=== PATIENT | female | born 1990 | race Caucasian/White ===

== ENCOUNTER → 2018-03-04 14:56 | Outpatient (CLI) | payer MEDICAID, SELFPAY ==
[2018-03-04 15:19] LABS: Basophils # 0.1 K/mm3 (0-0.2); Basophils % 0.6 % (0.1-2.0); Eosinophils # 0.1 K/mm3 (0.0-0.4); Eosinophils % 1.2 % (0.1-12.0); Hematocrit 40.2 % (37.0-47.0); Lymphocytes # 2.4 K/mm3 (0.7-4.5); Lymphocytes % 27.8 K/mm3 (10-50); Mean Corpuscular HGB Conc 32.2 g/dL (31.8-35.4); Mean Corpuscular Hemoglobin 29.9 pg (27.0-31.2); Mean Corpuscular Volume 92.7 fl (81-99); Mean Platelet Volume 8.8 fl (7.4-10.4); Monocytes # 0.4 K/mm3 (0.1-1.0); Monocytes % 4.2 % (1.7-9.3); Neutrophils # 5.6 K/mm3 (1.8-7.8); Neutrophils % 66.2 % (37.0-80.0); Platelet Count 213 K/mm3 (142-424); Red Blood Count 4.34 M/mm3 (4.20-5.40); Red Cell Distribution Width 12.9 % (11.5-17.5); White Blood Count 8.4 K/mm3 (4.8-10.8)
[2018-03-04 16:36] LABS: Thyroid Stimulating Hormone 1.93 uIU/ml (0.358-3.740)
== END ==
PROVIDERS: Family Provider Physician Assistant; PCP Family Medicine; Visit Provider Obstetrics & Gynecology
DX: N93.8 Other specified abnormal uterine and vaginal bleeding (principal)
CPT/HCPCS: 36415; 84443; 85025

== ENCOUNTER → 2018-05-28 10:10 | Outpatient (CLI) | payer MEDICAID, SELFPAY ==
[2018-05-28 10:16] LABS: Microscopic, Urine URINE MICROSCOPIC (MICROSCOPIC)
[2018-05-28 10:41] LABS: Appearance,Urine CLEAR (Clear); Bilirubin,Urine Negative (Negative); Blood, Urine Negative (Negative); Color,Urine YELLOW (Yellow); Glucose,Urine (UA) Negative (Negative); Ketones,Urine TRACE (Negative); Leukocyte Esterase,Urine Negative (Negative); Nitrate,Urine Negative (Negative); PH,Urine 6.5 (5.0-8.5); Protein,Urine Negative (Negative); Urobilinogen,Urine 0.2 EU/dl (0.2)
[2018-05-28 10:51] LABS: Bacteria,Urine Trace /lpf; Mucus,Urine 1+ /lpf; RBC,Urine Occasional #/hpf (0-3)
[2018-05-28 11:10] LABS: Basophils # 0.1 K/mm3 (0-0.2); Basophils % 1.2 % (0.1-2.0); Eosinophils # 0.2 K/mm3 (0.0-0.4); Eosinophils % 3.2 % (0.1-12.0); Hematocrit 41.9 % (37.0-47.0); Hemoglobin 12.9 g/dL (12.2-16.2); Lymphocytes # 2.2 K/mm3 (0.7-4.5); Lymphocytes % 35.7 K/mm3 (10-50); Mean Corpuscular HGB Conc 30.7 g/dL (31.8-35.4); Mean Corpuscular Hemoglobin 28.7 pg (27.0-31.2); Mean Corpuscular Volume 93.4 fl (81-99); Mean Platelet Volume 8.1 fl (7.4-10.4); Monocytes # 0.3 K/mm3 (0.1-1.0); Monocytes % 5.1 % (1.7-9.3); Neutrophils # 3.4 K/mm3 (1.8-7.8); Neutrophils % 54.7 % (37.0-80.0); Platelet Count 235 K/mm3 (142-424); Red Blood Count 4.49 M/mm3 (4.20-5.40); Red Cell Distribution Width 13.7 % (11.5-17.5); White Blood Count 6.1 K/mm3 (4.8-10.8)
[2018-05-28 11:19] LABS: Alanine Aminotransferase 16 U/L (12-78); Albumin Level 3.6 gm/dL (3.4-5.0); Albumin/Globulin Ratio 1.1 (1.1-1.8); Alkaline Phosphatase 61 U/L (46-116); Anion Gap 9.1 mEq/L (5-15); Aspartate Amino Transferase 11 U/L (15-37); Bilirubin,Total 0.2 mg/dL (0.2-1.0); Blood Urea Nitrogen 10 mg/dL (7-18); Calcium 9.1 mg/dL (8.5-10.1); Carbon Dioxide 30 mmol/L (21.0-32.0); Chloride 107 mmol/L (98-107); Creatinine,Serum 0.59 mg/dL (0.55-1.02); Estimated Glomerular Filt Rate 122 ml/min (>60); GFR (African American) 148 ML/MIN (>60); Globulin 3.3 gm/dl (1.3-3.2); Glucose 108 mg/dL (74-106); HCG,Quantitative 0 mIU/mL; Potassium 4.1 mmoL/L (3.5-5.1); Sodium 142 mmol/L (136-145); Total Protein,Serum 6.9 gm/dL (6.4-8.2)
== END ==
PROVIDERS: Visit Provider Obstetrics & Gynecology
DX: R10.2 Pelvic and perineal pain (principal); N93.8 Other specified abnormal uterine and vaginal bleeding; Z01.818 Encounter for other preprocedural examination
CPT/HCPCS: 36415; 80053; 81001; 84702; 85025

== ENCOUNTER 2018-05-31 06:05 | Observation (INO) ==
--- NOTE | 2018-05-31 07:12 | Progress Note ---
[facility] Anesthesia Checklist - Patient Identification Patient Identification: Arm Band, Verbal (Name & ) - Structural Data Admitted From: Home Planned Operative Procedure/s: TVH, BSO, possible open Consent for Planned Operative Procedure(s) Verified: Yes Verified Documents: Surgical Consent, History and Physical - NPO Status Verified Time NPO: 23:00 - Additional verifications Patient : No Anesthesia Reactions: No - Airway Assessment C-Spine Mobility Assessed: Yes TMJ Mobility Assessed: Yes Dentition: Poor Dentition (Missing teeth) - Neurological Assessment Level of Consciousness: Awake Hx Seizures: No Numbness or tingling in extremities: No - Anesthesia Plan Anesthesia Risk discussed: Yes Anesthesia Plan: Verified ASA Class: II Anesthesia Type: General (Intrathecal narcotic) [facility] Anesthesia HX I have reviewed the patient's past medical history: Yes Medical History: Denies:: Cancer, Diabetes Mellitus Type 1, Diabetes Mellitus Type 2, MRSA, Seizures Other Medical History: Reports: Other (Smokes tobacco). Denies: Blood Transfusion Reaction Laterality Cases: Bilateral: Tonsillectomy Other Surgeries: Yes: Other Amputation: No Fractures: No *Family Hx:: Hypertension, Cancer
--- NOTE | 2018-05-31 08:22 | Operative Note ---
Date of procedure: 05/31/18 Pre-op Diagnosis:: 1. Dysfunctional uterine bleeding. 2. Pelvic pain. 3. Endometriosis. Post-op Diagnosis:: 1. Dysfunctional uterine bleeding. 2. Pelvic pain. 3. Juan Carlos is. 4. Right ovarian cyst. Procedure performed:: 1. Total vaginal hysterectomy. 2. Aspiration of right ovarian cyst. Surgeon:: Russ Escobedo MD Director Call(s):: Dr. Abad ALUMINUM SIDING APPLICATOR:: Other (BEATRIZ Armendariz) Anesthesia: GETA Estimated blood loss (mL): 100 Operative findings:: 1. Dysfunctional uterine bleeding. 2. Pelvic pain. 3. Endometriosis. 4. Right ovarian cyst. Operative note:: After the patient was prepped and draped in usual fashion and general anesthesia was examination under anesthesia revealed a normal-sized anteverted uterus, with no palpable adnexal masses. A weighted speculum was placed within the posterior fourchette of the vagina, and the cervix was grasped with a double -tooth tenaculum, and retracted to the introitus. The cervix was circumcised with a knife, and the vaginal mucosa was sharply and bluntly dissected free. A posterior colpotomy incision was made with Usman scissors, and the long lip of the weighted speculum was placed within the posterior peritoneum. The uterosacral ligaments on either side were Bonita clamped, cut, and Bonita suture with #1 Vicryl, as were the cardinal ligaments and uterine vessels. The anterior peritoneum was entered with Usman scissors, and a long right angle retractor was placed within it. The uterus was flipped anteriorly, and the ovarian pedicles were crossclamped and cut, thus removing the boggy uterine specimen. These pedicles were Bonita sutured, and then free tied with #1 Vicryl. The left tube and ovary appeared normal. On the right side, the tube was normal, but there was a 3 cm clear cyst on the right ovary. The cyst was aspirated for a small amount of clear fluid, and the puncture site was cauterized. The posterior vaginal cuff was run unlocked with #1 Vicryl, to include the uterosacral ligament pedicles, and a Bear fashion, to reduce the enterocele. The anterior peritoneum was grasped with a long Allis clamp, and closed with a running suture of 0 Vicryl, and pulled tight. The vaginal cuff was closed with an anteroposterior running locked suture of #1 Vicryl. The urine was clear in Richardson catheter. The sponge and needle counts correct. The estimated blood loss was 100 cc. The patient tolerated the procedure well, and to PACU in excellent condition. She will be observed overnight. Condition: stable Disposition: PACU Specimens:: Uterus Complications:: None
--- NOTE | 2018-05-31 08:33 | Progress Note ---
[facility] [place] Anesthesia Record Part I Intake, IV Amount: 1,000 Estimated blood loss (mL): 100 Urine output (mL): 100 Blood Products used (#): none Blood Pressure: 102/62 SaO2: 97 Pulse Rate: 87 Respiratory Rate: 14 Temperature: 97.9 F Patient is:: Awake, Stable Stable to PACU at:: 08:25
--- NOTE | 2018-05-31 08:34 | Progress Note ---
[facility] Anesthesia Record Part II Discharge Time: 08:55 Destination: Medical Surgical Department PACU nurse assessment reviewed?: Yes Patient Condition:: Good Anesthesia Complications:: None
[2018-05-31 09:22] LABS: Hematocrit 35.7 % (37.0-47.0); Hemoglobin 11.1 g/dL (12.2-16.2)
--- NOTE | 2018-05-31 09:33 | Pharmacy Consult Notes ---
[facility] Pharmacy VTE Monitoring - Patient Demographics Admission date: 05/31/18 Report Date: 05/31/18 Time: 09:33 Allergies/Adverse Reactions: Patient Allergies SULFA (sulfonamide) Allergy (Intermediate, Uncoded 05/21/18 13:51) I-RASH Codeine Allergy (Mild, Uncoded 05/21/18 13:51) NA-NAUSEA Tramadol Allergy (Unknown, Uncoded 05/21/18 13:51) NA-NAUSEA/VOMITING Height: 1.5 m Weight: 42.638 kg - Prophylaxis VTE Prophylaxis Ordered?: Yes Types of VTE Prophylaxis: Pharmacological Pharmacologic Type: Enoxaparin - VTE Diagnosis Confirmed Treatment or plan recommended: Continue Current Treatment
--- NOTE | 2018-05-31 15:54 | Progress Note ---
Internal Medicine - PN: Subj *Date: 05/31/18 *Time: 15:53 Interval history: This is day of surgery. Surgery has been explained to the patient. Hemoglobin 11.1 g. She is afebrile. Vital signs stable. Urine output good. Her Richardson has been discontinued and I am starting her on a diet. Impression: Stable. Exam Vital signs and Labs for Last 24 Hours: Temp Pulse Resp BP Pulse Ox 98.3 F 52 L 16 91/54 100 05/31/18 15:30 05/31/18 15:30 05/31/18 15:30 05/31/18 15:30 05/31/18 15:30 Laboratory Results - last 24 hr 05/31/18 07:33: Urine Color Yellow, Urine Appearance Clear, Urine pH 6.5, Ur Specific [place] 1.015, Urine Protein Negative, Urine Glucose (UA) Negative, Urine Ketones Negative, Urine Blood Trace-i, Urine Nitrate Negative, Urine Bilirubin Negative, Urine Urobilinogen 0.2, Ur Leukocyte Esterase Negative, Urine RBC Occasional, Urine WBC Occasional, Ur Squamous Epith Cells 5-10, Urine Bacteria 2+ A 05/31/18 09:15: Hgb 11.1 L, Hct 35.7 L I & O for Last 24 hours: Intake & Output 05/29/18 05/30/18 05/31/18 06/01/18 11:59 11:59 11:59 11:59 Intake Total 1000 / 1000 Balance 1000 / 1000 Weight 94 lb 94 lb
[2018-06-01 06:06] LABS: Hematocrit 35.5 % (37.0-47.0); Hemoglobin 10.9 g/dL (12.2-16.2)
--- NOTE | 2018-06-01 06:38 | Progress Note ---
Internal Medicine - PN: Subj *Date: 06/01/18 *Time: 06:37 (This is postop day #1. The patient is afebrile. She has had her Richardson out and is awaiting voiding. She was found to be smoking in the bathroom and now has a nicotine patch on. She is afebrile. Vital signs stable. Abdomen soft. Hemoglobin 11.1 g. Impression: Stable.) Exam Vital signs and Labs for Last 24 Hours: Temp Pulse Resp BP Pulse Ox 97.9 F 70 18 94/58 99 06/01/18 05:15 06/01/18 05:15 06/01/18 05:15 06/01/18 05:15 05/31/18 20:30 Laboratory Results - last 24 hr 05/31/18 07:33: Urine Color Yellow, Urine Appearance Clear, Urine pH 6.5, Ur Specific [place] 1.015, Urine Protein Negative, Urine Glucose (UA) Negative, Urine Ketones Negative, Urine Blood Trace-i, Urine Nitrate Negative, Urine Bilirubin Negative, Urine Urobilinogen 0.2, Ur Leukocyte Esterase Negative, Urine RBC Occasional, Urine WBC Occasional, Ur Squamous Epith Cells 5-10, Urine Bacteria 2+ A 05/31/18 09:15: Hgb 11.1 L, Hct 35.7 L 06/01/18 05:45: Hgb 10.9 L, Hct 35.5 L I & O for Last 24 hours: Intake & Output 05/29/18 05/30/18 05/31/18 06/01/18 11:59 11:59 11:59 11:59 Intake Total 1000 / 1000 550 / 550 Output Total 675 / 675 Balance 1000 / 1000 -125 / -125 Weight 94 lb 94 lb
--- NOTE | 2018-06-01 08:54 | Discharge Summary ---
General - General Admission date:: 05/31/18 Discharge date: 06/01/18 (This 27-year-old white female was admitted for definitive treatment of pelvic pain, dysfunctional uterine bleeding, and endometriosis. On the date of admission, she was taken to the operating room, where she underwent a total vaginal hysterectomy and aspiration of her right ovarian cyst. Both adnexa remain in situ. The surgery was without complications. Postoperatively, the patient is done well. Her initial hemoglobin was 11.1 g; postoperatively it is 10.9 g, but she is clinically stable. She is eating and ambulating and passing flatus. Her abdomen is soft. She is discharged home on the first postoperative day on iron and vitamins, and on Percocet 5/325 (#20), 1 p.o. every 4-6 hours as needed pain. She is given appropriate instructions as to diet and exercise, and she is to return the office in 2 weeks for follow-up.) Objective Vital signs: Temp Pulse Resp BP Pulse Ox 97.9 F 70 18 94/58 99 06/01/18 05:15 06/01/18 05:15 06/01/18 05:15 06/01/18 05:15 05/31/18 20:30 Results Labs on day of discharge: Labs from last 24 hours 06/01/18 05/31/18 05/31/18 05:45 09:15 07:33 Hgb 10.9 L 11.1 L Hct 35.5 L 35.7 L Urine Color Yellow Urine Appearance Clear Urine pH 6.5 Ur Specific [place] 1.015 Urine Protein Negative Urine Glucose (UA) Negative Urine Ketones Negative Urine Blood Trace-i Urine Nitrate Negative Urine Bilirubin Negative Urine Urobilinogen 0.2 Ur Leukocyte Esterase Negative Urine RBC Occasional Urine WBC Occasional Ur Squamous Epith Cells 5-10 Urine Bacteria 2+ A Discharge Plan - Patient Discharge Instructions - Follow up Plan Home Medications: Home Medications Medication Instructions Recorded Confirmed Type Norethindrone 0.35 mg PO DAILY 05/31/18 05/31/18 History Prescriptions/Medication Reconciliation: No Action Norethindrone 0.35 mg PO DAILY
== END 2018-06-01 09:45 | disposition home or self-care (01) ==
LOC: OR 06:05 → OB 07:06 → INTOOBSV 07:06 → OB 09:26
PROVIDERS: ADMIT Obstetrics & Gynecology; ATTEND Obstetrics & Gynecology

== ENCOUNTER → 2018-09-21 13:50 | Outpatient (CLI) | payer MEDICAID, SELFPAY ==
--- NOTE | 2018-09-21 13:54 | US_ITS ---
US transvaginal HISTORY: ITS.REASON: Pelvic Pain ORDERING PHYSICIAN: Russ Escobedo MD PATIENT AGE: 28 years Comparison: 08/16/2015 FINDINGS: There has been a prior hysterectomy. The vaginal cuff has an unremarkable appearance. The right ovary is 3.6 x 2.6 cm and contains multiple follicles. The left ovary is 4 x 2 cm also containing multiple small follicles No dominant cyst evident. No cul-de-sac fluid. IMPRESSION: The ovaries have a polycystic appearance Interval hysterectomy
== END ==
PROVIDERS: PCP Family Medicine; Visit Provider Obstetrics & Gynecology
DX: R10.2 Pelvic and perineal pain (principal)
CPT/HCPCS: 76830

== ENCOUNTER → 2018-10-28 14:15 | Outpatient (CLI) | payer MEDICAID, SELFPAY ==
[2018-10-28 15:03] LABS: Basophils # 0.1 K/mm3 (0-0.2); Basophils % 1.3 % (0.1-2.0); Eosinophils # 0.1 K/mm3 (0.0-0.4); Eosinophils % 2.3 % (0.1-12.0); Hematocrit 38.9 % (37.0-47.0); Hemoglobin 12.4 g/dL (12.2-16.2); Lymphocytes # 2.8 K/mm3 (0.7-4.5); Lymphocytes % 46.2 % (10-50); Mean Corpuscular HGB Conc 31.7 g/dL (31.8-35.4); Mean Corpuscular Hemoglobin 28.7 pg (27.0-31.2); Mean Corpuscular Volume 90.4 fl (81-99); Mean Platelet Volume 7.7 fl (7.4-10.4); Monocytes # 0.3 K/mm3 (0.1-1.0); Monocytes % 4.8 % (1.7-9.3); Neutrophils # 2.8 K/mm3 (1.8-7.8); Neutrophils % 45.4 % (37.0-80.0); Platelet Count 248 K/mm3 (142-424); Red Blood Count 4.31 M/mm3 (4.20-5.40); Red Cell Distribution Width 14.2 % (11.5-17.5); White Blood Count 6.2 K/mm3 (4.8-10.8)
[2018-10-28 15:33] LABS: Alanine Aminotransferase 21 U/L (12-78); Albumin Level 3.5 gm/dL (3.4-5.0); Alkaline Phosphatase 66 U/L (46-116); Anion Gap 11.8 mEq/L (5-15); Aspartate Amino Transferase 13 U/L (15-37); Bilirubin,Total 0.2 mg/dL (0.2-1.0); Blood Urea Nitrogen 17 mg/dL (7-18); Carbon Dioxide 30 mmol/L (21.0-32.0); Chloride 104 mmol/L (98-107); Creatinine,Serum 0.79 mg/dL (0.55-1.02); Estimated Glomerular Filt Rate 87 ml/min (>60); GFR (African American) 105 ML/MIN (>60); Globulin 3.4 gm/dl (1.3-3.2); Glucose 68 mg/dL (74-106); Potassium 3.8 mmoL/L (3.5-5.1); Sodium 142 mmol/L (136-145); Total Protein,Serum 6.9 gm/dL (6.4-8.2)
== END ==
PROVIDERS: Visit Provider Obstetrics & Gynecology
DX: Z01.818 Encounter for other preprocedural examination (principal); N73.6 Female pelvic peritoneal adhesions (postinfective); R10.2 Pelvic and perineal pain; T81.31XA Disruption of external operation (surgical) wound, not elsewhere classified, initial encounter
CPT/HCPCS: 36415; 80053; 85025

== ENCOUNTER 2020-03-29 17:49 | Emergency (ER) | payer OTHER, SELFPAY ==
[2020-03-29 18:12] VITALS: BP 123/74; PULSE 119; RESP 20; TEMP 36.7; O2SAT 99; BMI 21.6
--- NOTE | 2020-03-29 18:21 | HMH.EDUTC ---
[facility] [place] Clinical Impression: Bronchitis Pharyngitis Qualifiers: Pharyngitis/tonsillitis etiology: unspecified etiology Qualified Code(s): J02.9 - Acute pharyngitis, unspecified Disposition: Home, Self-Care Condition on Discharge: Good Instructions: Acute Bronchitis, DI for Acute Bronchitis Additional Instructions: Drink plenty of fluids. Take tylenol or ibuprofen for pain or fever. Take the medications as directed. Follow up with your regular doctor. GO TO THE ER FOR ANY WORSENING SYMPTOMS Off work until the results of the COVID-19 test is back. This should be back within 48 hours. Prescriptions: Benzonatate [Tessalon Perle 100mg Cap] 100 mg PO TIDP PRN #30 cap PRN Reason: Cough Transmission Status: Received by [facility] #[id number] Azithromycin [Z-Navneet 250mg Tab*] 250 mg PO UD DOSE PK #6 tab Transmission Status: Received by [facility] #[id number] Referrals: Saqib Lewis MD [Primary Care Provider] - Forms: Work/School Release Time of Disposition: 18:53 Medical Decision Making - Medical Records Medical records reviewed: No: I reviewed the patient's medical records. - Tod Inquiry Pt receiving controlled substance: No Vital Signs: 03/29/20 18:12 03/29/20 19:00 Temperature 98.0 F 98.0 F Temperature Source Oral Pulse Rate 92 H Pulse Rate [Left Radial] 119 H Respiratory Rate 20 18 Blood Pressure 123/74 Blood Pressure [Left Arm] 123/74 Blood Pressure Mean [Left Arm] 90 Blood Pressure Source [Left Arm] Automatic Cuff Blood Pressure Position [Left Arm] Sitting 02 Sat by Pulse Oximetry 99 Oxygen Delivery Method Room Air - Lab Data Lab results reviewed: Yes: I reviewed the patient's lab results. Lab Results 03/29/20 18:10: Strep Scn Rapid Clinic Negative Orders (Tests/Meds): ORDERS Category Date Time Status SARS-CoV-2, ALEX Stat Lab 03/29/20 18:42 Received Strep Screen Confirmation Stat Micro 03/29/20 18:10 Received [facility] [place] - General Stated complaint: sore throat,cough Time Seen by Provider: 03/29/20 18:22 Mode of Arrival: Ambulatory Source of Information: Patient Limitations: No Limitations Description of Symptoms (Recalled from Triage Doc. by RN): C/O SORE THROAT AND COUGH HEENT Symptoms (Recalled from RN notes): Yes (SORE THROAT) Resp Symptoms (Recalled from RN notes): Yes (COUGH) Skin Symptoms (Recalled from RN notes): No MS Symptoms (Recalled from RN notes): No Functional Status (Recalled from RN notes): N/A - History of Present Illness Provider Complaint: She c/o sore throat, cough, sinus congestion for the past 3 days. She works at [employer]. She tried to go to work, but she had some of the symptoms on the COVID-19 questionaire that she was given at the door to her work. - Related Data Previous Rx's Medication Instructions Recorded Azithromycin [Z-Navneet 250mg Tab*] 250 mg PO UD DOSE PK #6 tab 11/07/19 Brompheniramine/Pseudoephed/Dm 5 ml PO Q6HP PRN #240 syrup 11/07/19 [Bromfed Dm Cough Syrup] Oseltamivir Phosphate [Tamiflu 75 mg PO BID #10 cap 11/07/19 75mg Capsule] Azithromycin [Z-Navneet 250mg Tab*] 250 mg PO UD DOSE PK #6 tab 03/29/20 Benzonatate [Tessalon Perle 100mg 100 mg PO TIDP PRN #30 cap 03/29/20 Cap] Allergies Allergy/AdvReac Type Severity Reaction Status Date / Time SULFA (sulfonamide) Allergy Intermediate I-RASH Uncoded 10/28/18 13:54 Codeine Allergy Mild NA-NAUSEA Uncoded 10/28/18 13:54 Tramadol Allergy Unknown NA-NAUSEA/V Uncoded 10/28/18 13:54 OMITING - Worker's Comp Is this a Worker's Comp case?: No [facility] History - Hepatitis A Screen Drug use history?: No High risk sexual behaviors?: No History of sexually transmitted infection?: No Currently employed?: No Childcare worker?: No Do you have indoor plumbing?: Yes Do you have electricity?: Yes Attestation statement:: This patient has been screened for Hepatitis A risk factors. I have reviewe
--- NOTE | 2020-03-29 18:36 | PC.NURSE ---
NOTIFIED LAB OF COVID SWAB NEEDED.
[2020-03-29 18:55] LABS: UTC Strep Screen (Rapid) Negative (Negative)
[2020-03-29 19:00] VITALS: BP 123/74; PULSE 92; RESP 18; TEMP 36.7; O2SAT 99
[2020-04-01 08:40] LABS: Covid-19 Nasal PCR Sendout Lex Not Detected
--- NOTE | 2020-04-01 21:46 | PC.NURSE ---
Covid -19 negative. patient notified of results
== END 2020-03-29 19:02 | disposition home or self-care (01) ==
PROVIDERS: Emergency Provider Nurse Practitioner Family; PCP Family Medicine
DX: J20.9 Acute bronchitis, unspecified (principal); J02.9 Acute pharyngitis, unspecified; F17.210 Nicotine dependence, cigarettes, uncomplicated; Z88.2 Allergy status to sulfonamides; Z88.8 Allergy status to other drugs, medicaments and biological substances
CPT/HCPCS: 87880; 99201; U0004

== ENCOUNTER → 2020-05-24 15:55 | Outpatient (CLI) | payer OTHER, SELFPAY ==
[2020-05-26 14:51] LABS: Covid-19 Nasal PCR Sendout Lex Not Detected
== END ==
PROVIDERS: PCP Family Medicine; Visit Provider Family Medicine
DX: Z03.818 Encounter for observation for suspected exposure to other biological agents ruled out (principal); Z11.59 Encounter for screening for other viral diseases
CPT/HCPCS: U0004

== ENCOUNTER → 2020-09-20 16:03 | Outpatient (CLI) | payer OTHER, SELFPAY ==
[2020-09-20 17:49] LABS: Thyroid Stimulating Hormone 2.23 uIU/mL (0.465-4.68)
[2020-09-22 19:37] LABS: FSH 9.1 mIU/mL (.)
== END ==
PROVIDERS: Visit Provider Obstetrics & Gynecology
DX: N92.6 Irregular menstruation, unspecified (principal); N64.59 Other signs and symptoms in breast
CPT/HCPCS: 36415; 83001; 83002; 84146; 84443

== ENCOUNTER → 2022-03-17 14:06 | Outpatient (CLI) | payer OTHER, SELFPAY ==
[2022-03-19 11:06] LABS: Prolactin 16.2 ng/mL (4.8-23.3)
== END ==
PROVIDERS: Visit Provider Obstetrics & Gynecology
DX: N64.59 Other signs and symptoms in breast (principal)
CPT/HCPCS: 36415; 84146

== ENCOUNTER 2022-09-15 12:09 | Emergency (ER) | payer OTHER, SELFPAY ==
[2022-09-15 12:45] VITALS: BP 101/68; PULSE 64; RESP 20; TEMP 37.3; O2SAT 99; BMI 24.7
--- NOTE | 2022-09-15 13:10 | EXP.UTC ---
Discharge Plan Disposition Patient Disposition: Home, Self-Care Condition: Good Prescriptions Prescriptions: New amoxicillin [amoxicillin] 500 mg tablet 500 mg PO TID 10 Days Qty: 30 0RF benzonatate [benzonatate] 100 mg capsule 100 mg PO TIDP PRN (Reason: Cough) Qty: 30 0RF methylprednisolone 4 mg Tablets,Dose Pack 4 mg PO DIRECTED Qty: 21 0RF No Action vitamin E mixed 400 unit tablet 400 unit PO DAILY Qty: 90 0RF Referrals Follow up/Referrals: Saqib Lewis MD [Primary Care Provider] - See instructions Activity Restrictions/Add. Instructions Additional Instructions/Restrictions: Drink plenty of fluids. Take tylenol or ibuprofen for pain or fever. Take the medications as directed. Follow up with your regular doctor. GO TO THE ER FOR ANY WORSENING SYMPTOMS Throw your tooth brush away and get a new one. Clinical Impressions Clinical Impression: Strep throat Stand Alone Forms Stand Alone Forms: Work/School Release Instructions Patient Instructions: DI for Strep Throat Discharge ED Provider: Gab Obrien [facility] General Stated complaint: sore throat,headache Time Seen by Provider: 09/15/22 13:06 History of Present Illness Provider Complaint: She c/o sore throat for the past 3 days. She has had a fever and nausea also. She denies significant cough and congestion. Related Data Previous Rx's Medication Instructions Recorded vitamin E mixed 400 unit tablet 400 unit PO DAILY #90 tabs 03/20/22 amoxicillin 500 mg tablet 500 mg PO TID 10 days #30 tabs 09/15/22 benzonatate 100 mg capsule 100 mg PO TIDP PRN Cough #30 caps 09/15/22 methylprednisolone 4 mg tablets in 4 mg PO DIRECTED #21 tabs 09/15/22 a dose pack Allergies Allergy/AdvReac Type Severity Reaction Status Date / Time codeine Allergy Verified 09/15/22 13:21 Sulfa (Sulfonamide Allergy Verified 09/15/22 13:21 Antibiotics) tramadol Allergy Verified 09/15/22 13:21 [facility] Social History Smoking Status: Former smoker alcohol intake: never substance use type: denies use current occupational status: other Travel in the last 8 weeks: None household members: spouse housing: house current occupation: na current occupational exposures/hazards: No caffeine: Yes ROS Obtained: Yes All systems reviewed & no additional complaints except as documented Constitutional Constitutional: Reports chills and Reports fever(s) Eyes Eyes: Denies eye discharge ENT Ears, Nose, Mouth, and Throat: Reports as per HPI Cardiovascular Cardiovascular: Denies chest pain Respiratory Respiratory: Denies chest congestion and Reports cough Gastrointestinal Gastrointestingal: Reports nausea; Denies abdominal pain, constipation, cramping, diarrhea or vomiting Musculoskeletal Musculoskeletal: Denies arthralgias Integumentary/Breasts Skin/Breast: Denies rash Neurologic Neurologic: Denies paresthesias Physical Exam General General appearance: alert and in no apparent distress Head Head exam: atraumatic, normocephalic and normal inspection Eye Eye exam: Present normal appearance, PERRL and EOMI ENT ENT exam: Present mucous membranes moist and normal external ear exam Expanded ENT Exam TM/Canal exam: Bilateral TM: erythema and bulging Nose exam: Absent sinus tenderness Mouth exam: Present normal external inspection; Absent drooling Teeth exam: Present normal inspection Throat exam: Present tonsillar erythema, tonsillomegaly and tonsillar exudate Neck Neck exam: Present normal inspection, full ROM and trachea midline; Absent tenderness, meningismus or lymphadenopathy Chest Chest inspection: Present normal inspection and symmetric chest wall rise; Absent tenderness Respiratory Respiratory exam: Present normal lung sounds bilaterally; Absent respiratory distress, wheezes or stridor Cardiovascular Cardiovascular exam: Present regular rate an
[2022-09-15 13:15] LABS: UTC Strep Screen (Rapid) Negative (Negative)
[2022-09-15 13:22] VITALS: BP 101/68; PULSE 64; RESP 20; TEMP 37.3; O2SAT 99
== END 2022-09-15 13:35 | disposition home or self-care (01) ==
PROVIDERS: Emergency Provider Nurse Practitioner Family; PCP Family Medicine
DX: J02.9 Acute pharyngitis, unspecified (principal); R50.9 Fever, unspecified; R05.9 Cough, unspecified; R51.9 Headache, unspecified; R11.0 Nausea; Z79.52 Long term (current) use of systemic steroids; Z79.899 Other long term (current) drug therapy; Z88.2 Allergy status to sulfonamides; Z88.5 Allergy status to narcotic agent; Z88.6 Allergy status to analgesic agent; Z87.891 Personal history of nicotine dependence
CPT/HCPCS: 87880; 99283

== ENCOUNTER 2022-11-02 13:13 | Emergency (ER) | payer OTHER, SELFPAY ==
[2022-11-02 13:34] VITALS: BP 119/67; PULSE 71; RESP 18; TEMP 36.6; O2SAT 99; BMI 24.2
--- NOTE | 2022-11-02 13:34 | EXP.UTC ---
Discharge Plan Disposition Patient Disposition: Home, Self-Care Condition: Good Prescriptions Prescriptions: New cefdinir 300 mg capsule 300 mg PO BID Qty: 20 0RF No Action vitamin E mixed 400 unit tablet 400 unit PO DAILY Qty: 90 0RF oseltamivir [Tamiflu] 75 mg capsule 75 mg PO DAILY Qty: 10 0RF amoxicillin [amoxicillin] 500 mg tablet 500 mg PO TID 10 Days Qty: 30 0RF benzonatate [benzonatate] 100 mg capsule 100 mg PO TIDP PRN (Reason: Cough) Qty: 30 0RF methylprednisolone 4 mg Tablets,Dose Pack 4 mg PO DIRECTED Qty: 21 0RF Referrals Follow up/Referrals: Saqib Lewis MD [Primary Care Provider] - See instructions Activity Restrictions/Add. Instructions Additional Instructions/Restrictions: *Monitor Temp, Over the counter Motrin or Tylenol as directed/as needed Tylenol every 4 hours and Motrin every 6 hours (as long as your family doctor has told you that you can take it) for fever or pain. and straight to ER if unable to lower temp less than 101.0 after medication given *Warm salt water gargles may help to soothe the throat *Throat Lozenges? *Warm fluids like tea with honey may help to soothe the throat? *Sleep elevated *Humidifier/Vaporizer *If you did not take Penicillin shot or was unable to, start taking antibiotic immediately and make sure that you take it for the FULL length of time although you should start to feel better in 24-48 hours *change toothbrush and toothpaste 24-48 hours after starting to take antibiotics so you do not reinfect yourself Monitor Temp. Tylenol and/or Ibuprofen as needed. ER if fever is no less than 101 despite alternating Tylenol and Ibuprofen * Encourage fluids, water, Gatorade, powerade, pedialyte if infant/toddler/or child *Cold fluids, popsicles and ice cream may feel good on his throat Follow up IMMEDIATELY for new or worsening symptoms or no Noticeable improvement over the next 48-72 hours. 911 for difficulty breathing or swallowing Clinical Impressions Clinical Impression: Strep throat Discharge ED Provider: Ashely Luz [facility] HPI General Stated complaint: sore throat,headache Time Seen by Provider: 11/02/22 13:35 History of Present Illness Provider Complaint: Patient states that she has been having sore throat, nasal congestion and headaches State that it feels like it did before when she had strep throat so she came in to get checked for it Related Data Previous Rx's Medication Instructions Recorded vitamin E mixed 400 unit tablet 400 unit PO DAILY #90 tabs 03/20/22 amoxicillin 500 mg tablet 500 mg PO TID 10 days #30 tabs 09/15/22 benzonatate 100 mg capsule 100 mg PO TIDP PRN Cough #30 caps 09/15/22 methylprednisolone 4 mg tablets in 4 mg PO DIRECTED #21 tabs 09/15/22 a dose pack oseltamivir 75 mg capsule (Tamiflu) 75 mg PO DAILY #10 caps 09/19/22 cefdinir 300 mg capsule 300 mg PO BID #20 caps 11/02/22 Allergies Allergy/AdvReac Type Severity Reaction Status Date / Time codeine Allergy Verified 11/02/22 13:36 Sulfa (Sulfonamide Allergy Verified 11/02/22 13:36 Antibiotics) tramadol Allergy Verified 11/02/22 13:36 [facility] Disclaimer: The information contained in this section may have been updated after the patient was seen, as this information can be updated by other users. Social History Smoking Status: Former smoker alcohol intake: never substance use type: denies use current occupational status: other Travel in the last 8 weeks: None household members: spouse housing: house current occupation: na current occupational exposures/hazards: No caffeine: Yes ROS Obtained: Yes All systems reviewed & no additional complaints except as documented and Yes Systems reviewed as appropriate & no additional complaints except as documented Constitutional Constitutional: Reports system reviewed and no additiona
[2022-11-02 13:36] LABS: UTC Strep Screen (Rapid) Positive (Negative)
[2022-11-02 13:42] VITALS: BP 119/67; PULSE 71; RESP 18; TEMP 36.6
== END 2022-11-02 13:45 | disposition home or self-care (01) ==
PROVIDERS: Emergency Provider Nurse Practitioner; PCP Family Medicine
DX: J02.0 Streptococcal pharyngitis (principal)
CPT/HCPCS: 87880; 99212; G0463

== ENCOUNTER 2022-11-24 13:35 | Emergency (ER) | payer OTHER, SELFPAY ==
--- NOTE | 2022-11-24 14:02 | EXP.UTC ---
Discharge Plan Disposition Patient Disposition: Home, Self-Care Condition: Good Prescriptions Prescriptions: New amoxicillin [amoxicillin] 500 mg tablet 500 mg PO TID 10 Days Qty: 30 0RF dsxvucafitegaep-hcqrrmdsk-BQ [Bromfed DM] 2-30-10 mg/5 mL Syrup 5 ml PO Q6H PRN (Reason: Cough) Qty: 240 0RF methylprednisolone 4 mg Tablets,Dose Pack 4 mg PO DIRECTED Qty: 21 0RF Referrals Follow up/Referrals: Saqib Lewis MD [Primary Care Provider] - See instructions Activity Restrictions/Add. Instructions Additional Instructions/Restrictions: Drink plenty of fluids. Take tylenol or ibuprofen for pain or fever. Take the medications as directed. Follow up with your regular doctor. GO TO THE ER FOR ANY WORSENING SYMPTOMS Clinical Impressions Clinical Impression: Otitis media Instructions Patient Instructions: Middle Ear Infection Discharge ED Provider: Gab Obrien [facility] [place] HPI General Stated complaint: Left Earache Time Seen by Provider: 11/24/22 14:01 History of Present Illness Provider Complaint: She states that for the past 3 days she has had ear pain, sinus congestion and a nonproductive cough. Related Data Previous Rx's Medication Instructions Recorded amoxicillin 500 mg tablet 500 mg PO TID 10 days #30 tabs 11/24/22 hoatvpccqckwozt-lasrtwaokndpxav-CY 5 ml PO Q6H PRN Cough #240 mL 11/24/22 2 mg-30 mg-10 mg/5 mL oral syrup (Bromfed DM) methylprednisolone 4 mg tablets in 4 mg PO DIRECTED #21 tabs 11/24/22 a dose pack Allergies Allergy/AdvReac Type Severity Reaction Status Date / Time codeine Allergy Verified 11/24/22 14:16 Sulfa (Sulfonamide Allergy Verified 11/24/22 14:16 Antibiotics) tramadol Allergy Verified 11/24/22 14:16 [facility] Disclaimer: The information contained in this section may have been updated after the patient was seen, as this information can be updated by other users. Social History Smoking Status: Former smoker alcohol intake: never substance use type: denies use current occupational status: other Travel in the last 8 weeks: None household members: spouse housing: house current occupation: na current occupational exposures/hazards: No caffeine: Yes ROS Obtained: Yes All systems reviewed & no additional complaints except as documented Constitutional Constitutional: Denies chills, Reports fever(s) and Reports poor appetite Eyes Eyes: Denies eye discharge ENT Ears, Nose, Mouth, and Throat: Denies ear discharge, Reports otalgia, Denies hearing loss, Denies sinus pain and Reports sore throat Cardiovascular Cardiovascular: Denies chest pain and Denies dyspnea Respiratory Respiratory: Denies chest congestion, Reports cough and Denies dyspnea Gastrointestinal Gastrointestingal: Denies abdominal pain, diarrhea, nausea or vomiting Musculoskeletal Musculoskeletal: Denies arthralgias Integumentary/Breasts Skin/Breast: Denies rash Physical Exam General General appearance: alert and in no apparent distress Head Head exam: atraumatic, normocephalic and normal inspection Eye Eye exam: Present normal appearance; Absent PERRL or EOMI ENT ENT exam: Present mucous membranes moist and normal external ear exam Expanded ENT Exam TM/Canal exam: Bilateral TM: erythema, bulging and effusion Nose exam: Absent sinus tenderness Nasal speculum exam: Bilateral: normal Mouth exam: Present normal external inspection and other; Absent drooling Teeth exam: Present normal inspection Throat exam: Present tonsillar erythema and tonsillomegaly Neck Neck exam: Present normal inspection, full ROM and trachea midline; Absent tenderness, meningismus or lymphadenopathy Chest Chest inspection: Present normal inspection and symmetric chest wall rise; Absent tenderness Respiratory Respiratory exam: Present normal lung sounds bilaterally; Absent respiratory distress, wheezes or stridor Card
[2022-11-24 14:05] VITALS: BP 102/64; PULSE 62; RESP 19; TEMP 37.1; O2SAT 100; BMI 23.8
[2022-11-24 14:50] VITALS: BP 102/64; PULSE 62; RESP 19; TEMP 37.1; O2SAT 100
== END 2022-11-24 14:50 | disposition home or self-care (01) ==
PROVIDERS: Emergency Provider Nurse Practitioner Family; PCP Family Medicine
DX: H66.90 Otitis media, unspecified, unspecified ear (principal)
CPT/HCPCS: 99212; G0463

== ENCOUNTER 2023-04-07 18:15 | Emergency (ER) | payer OTHER, SELFPAY ==
[2023-04-07 19:40] VITALS: BP 109/77; PULSE 64; RESP 18; TEMP 36.9; O2SAT 99; BMI 24.2
--- NOTE | 2023-04-07 20:10 | EXP.UTC ---
Discharge Plan Disposition Patient Disposition: Home, Self-Care Condition: Good Prescriptions Prescriptions: New clindamycin HCl 300 mg capsule 300 mg PO Q8H 7 Days Qty: 21 0RF mupirocin 2 % ointment 1 applic topical TID 10 Days Qty: 22 0RF Rx Instructions: apply to area as directed Referrals Follow up/Referrals: Saqib Lewis MD [Primary Care Provider] - See instructions Activity Restrictions/Add. Instructions Additional Instructions/Restrictions: *Start antibiotic(s) immediately and be sure to take as ordered for the FULL length of time although you may be feeling better or start to see improvement in the next 24-48 hours *Monitor closely. Outlined redness so that you can monitor easier. Follow up immediately for new or worsening symptoms including but not limited to redness, swelling, streaking from site fever or chills. *Warm compress 15 minutes 3-4 times day *Never squeeze or pop these on your own. Seek immediate medical attention next time this occurs *Monitor Temp. Tylenol every 4 hours as needed and ibuprofen every 6 hours as needed (as long as your primary care doctor has told you that it is ok to take both. For fever, aches, pain. ER if no less that 101 despite Tylenol and ibuprofen ?Follow up with your family doctor/primary care physician in the next 48-72 hours if no improvement Clinical Impressions Clinical Impression: Cellulitis Qualifiers: Site of cellulitis: extremity Site of cellulitis of extremity: upper extremity Laterality: right Qualified Code(s): L03.113 - Cellulitis of right upper limb Instructions Patient Instructions: Cellulitis, Clindamycin Discharge ED Provider: Ashely Luz [facility] [place] HPI General Stated complaint: possible spider bite right arm Mode of Arrival: Ambulatory Source of Information: Patient Limitations: No Limitations Time Seen by Provider: 04/07/23 20:10 Description of Symptoms (Recalled from Triage Doc. by RN): PATIENT C/O SPIDER BITE TO RIGHT FOREARM X 2 DAYS HEENT Symptoms (Recalled from RN notes): No Resp Symptoms (Recalled from RN notes): No Skin Symptoms (Recalled from RN notes): Yes MS Symptoms (Recalled from RN notes): No Functional Status (Recalled from RN notes): WNL History of Present Illness Provider Complaint: Patient states that she thinks she was bitten by a spider states she noticed area on her right forearm started getting worse and was red and warm States that she tried to pop it but nothing came out and today the redness was spreading and worse so she came in Related Data Previous Rx's Medication Instructions Recorded clindamycin HCl 300 mg capsule 300 mg PO Q8H 7 days #21 caps 04/07/23 mupirocin 2 % topical ointment 1 applic topical TID 10 days #22 04/07/23 grams Allergies Allergy/AdvReac Type Severity Reaction Status Date / Time codeine Allergy Verified 11/24/22 14:16 Sulfa (Sulfonamide Allergy Verified 11/24/22 14:16 Antibiotics) tramadol Allergy Verified 11/24/22 14:16 Worker's Comp Is this a Worker's Comp case?: No [facility] Disclaimer: The information contained in this section may have been updated after the patient was seen, as this information can be updated by other users. Social History Smoking Status: Former smoker alcohol intake: never substance use type: denies use current occupational status: other Travel in the last 8 weeks: None household members: spouse housing: house current occupation: na current occupational exposures/hazards: No caffeine: Yes ROS Obtained: Yes All systems reviewed & no additional complaints except as documented and Yes Systems reviewed as appropriate & no additional complaints except as documented Constitutional Constitutional: Reports system reviewed and no additional complaints, except as documented, Reports as per HPI and Denies fever(s) ENT Ears, Nose, Mouth, and Throat: Reports system reviewed and
[2023-04-07 20:25] VITALS: BP 109/77; PULSE 64; RESP 18; TEMP 36.9; O2SAT 99
== END 2023-04-07 20:29 | disposition home or self-care (01) ==
PROVIDERS: Emergency Provider Nurse Practitioner; PCP Family Medicine
DX: L03.113 Cellulitis of right upper limb (principal)
CPT/HCPCS: 99212; 99214; G0463

== ENCOUNTER 2023-04-20 10:59 | Emergency (ER) | payer OTHER, SELFPAY ==
[2023-04-20 11:10] VITALS: BP 115/76; PULSE 73; RESP 18; TEMP 37; O2SAT 99; BMI 22.6
[2023-04-20 11:23] LABS: UTC Strep Screen (Rapid) Negative (Negative)
--- NOTE | 2023-04-20 11:31 | EXP.UTC ---
Discharge Plan Disposition Patient Disposition: Home, Self-Care Condition: Good Prescriptions Prescriptions: New azithromycin [Zithromax Z-Navneet] 250 mg tablet See Rx Instructions .ROUTE .COMPLEX 5 Days Qty: 6 0RF Rx Instructions: For 250 mg dose pack: take 500 mg today (day 1), then 250 mg for 4 days (days 2-5) Referrals Follow up/Referrals: Saqib Lewis MD [Primary Care Provider] - See instructions Activity Restrictions/Add. Instructions Additional Instructions/Restrictions: *Monitor Temp, Over the counter Motrin or Tylenol as directed/as needed Tylenol every 4 hours and Motrin every 6 hours (as long as your family doctor has told you that you can take it) for fever or pain. and straight to ER if unable to lower temp less than 101.0 after medication given *Warm salt water gargles may help to soothe the throat *Throat Lozenges? *Warm fluids like tea with honey may help to soothe the throat? *Sleep elevated *Humidifier/Vaporizer Your throat swab was sent for culture. Those results are typically sent to your primary care. Be sure to follow up in 2-3 days with your family doctor/primary care physician if no improvement so they can review those result and treat if necessary. If you don?t have a primary care doctor, I recommend you get one but in the mean time, you will have to return to a walk in clinic Follow up IMMEDIATELY for new or worsening symptoms or no Noticeable improvement over the next 48-72 hours. 911 for difficulty breathing or swallowing Clinical Impressions Clinical Impression: Pharyngitis Instructions Patient Instructions: Sore Throat Discharge ED Provider: Ashely Luz [facility] General Stated complaint: Sore throat Mode of Arrival: Ambulatory Source of Information: Patient Limitations: No Limitations Time Seen by Provider: 04/20/23 11:31 Description of Symptoms (Recalled from Triage Doc. by RN): PATIENT C/O SORE THROAT SINCE YESTERDAY HEENT Symptoms (Recalled from RN notes): Yes Resp Symptoms (Recalled from RN notes): No Skin Symptoms (Recalled from RN notes): No MS Symptoms (Recalled from RN notes): No Functional Status (Recalled from RN notes): WNL History of Present Illness Provider Complaint: Patient states that her son recently had strep throat and she has been having sore throat for several days and got worse since yesterday States that her throat hurts when she swallows and feels scratchy like it has before when she has had strep throat so she came in Related Data Previous Rx's Medication Instructions Recorded azithromycin 250 mg tablet See Rx Instructions PO .COMPLEX 5 04/20/23 (Zithromax Z-Navneet) days #6 tabs Allergies Allergy/AdvReac Type Severity Reaction Status Date / Time codeine Allergy Verified 11/24/22 14:16 Sulfa (Sulfonamide Allergy Verified 11/24/22 14:16 Antibiotics) tramadol Allergy Verified 11/24/22 14:16 Worker's Comp Is this a Worker's Comp case?: No [facility] Disclaimer: The information contained in this section may have been updated after the patient was seen, as this information can be updated by other users. Medical History (Updated 04/20/23 @ 11:40 by Ashely Luz APRN) No significant past medical history Surgical History History of appendectomy History of section History of cholecystectomy History of hysterectomy History of tonsillectomy History of tympanostomy tube placement Social History Smoking Status: Former smoker alcohol intake: never substance use type: denies use current occupational status: other Travel in the last 8 weeks: None household members: spouse housing: house current occupation: na current occupational exposures/hazards: No caffeine: Yes ROS Obtained: Yes All systems reviewed & no additional complaints except as documented and Y
[2023-04-20 11:46] VITALS: BP 115/76; PULSE 73; RESP 18; TEMP 37; O2SAT 99
== END 2023-04-20 11:51 | disposition home or self-care (01) ==
PROVIDERS: Emergency Provider Nurse Practitioner; PCP Family Medicine
DX: J02.9 Acute pharyngitis, unspecified (principal); Z87.891 Personal history of nicotine dependence
CPT/HCPCS: 87880; 99212; 99214; G0463

== ENCOUNTER → 2023-06-25 11:24 | Outpatient (CLI) | payer OTHER, SELFPAY ==
[2023-06-25 12:03] LABS: Basophils # 0.1 K/mm3 (0-0.2); Basophils % 1.1 % (0.1-2.0); Eosinophils # 0.1 K/mm3 (0.0-0.4); Eosinophils % 1.2 % (0.1-12.0); Hematocrit 42.7 % (37.0-47.0); Hemoglobin 14.1 g/dL (12.2-16.2); Lymphocytes # 1.5 K/mm3 (0.7-4.5); Lymphocytes % 22.1 % (10-50); Mean Corpuscular Hemoglobin 30.3 pg (27.0-31.2); Mean Corpuscular Volume 91.6 fl (81-99); Mean Platelet Volume 8.4 fl (7.4-10.4); Monocytes # 0.4 K/mm3 (0.1-1.0); Monocytes % 5.4 % (1.7-9.3); Neutrophils # 4.8 K/mm3 (1.8-7.8); Neutrophils % 70.3 % (37.0-80.0); Platelet Count 238 K/mm3 (142-424); Red Blood Count 4.66 M/mm3 (4.20-5.40); Red Cell Distribution Width 12.8 % (11.5-17.5); White Blood Count 6.8 K/mm3 (4.8-10.8)
[2023-06-25 13:05] LABS: Alanine Aminotransferase 19 U/L (12-78); Albumin Level 4.6 g/dl (3.5-5.0); Alkaline Phosphatase 44 U/L (38-126); Aspartate Amino Transferase 23 U/L (14-36); Bilirubin,Indirect 0.5 mg/dL (0.0-0.9); Bilirubin,Total 0.5 mg/dl (0.2-1.3); Bilirubin,Unconjugated 0.7 mg/dL (0.0-1.1); Total Protein,Serum 7.6 g/dl (6.3-8.2)
[2023-06-26 12:16] LABS: AFP, Tumor Marker <1.8 ng/mL (0.0-6.4); Hep B Surface Ab, Qual Reactive (.)
[2023-07-09 10:01] LABS: Fibrosis Score 0.04; Fibrosis Stage F0- NO FIBROSIS
[2023-07-09 10:02] LABS: Alpha 2-Macroglobulins, Qn 228; Necroinflammat Activity Score 0.03
[2023-07-09 10:03] LABS: Apolipoprotein A-1 179; Bilirubin, Total 0.3; GGT 8; Haptoglobin 128
[2023-07-09 10:04] LABS: ALT (SGPT) P5P 14
== END ==
PROVIDERS: PCP Family Medicine; Visit Provider Nurse Practitioner
DX: R76.8 Other specified abnormal immunological findings in serum (principal)
CPT/HCPCS: 36415; 80076; 81596; 82105; 85025; 86706; 87522; 87902

== ENCOUNTER → 2023-08-12 06:45 | Outpatient (CLI) | payer OTHER, SELFPAY ==
--- NOTE | 2023-08-12 06:48 | US_ITS ---
FINAL REPORT TECHNIQUE: Sonographic images of the right upper quadrant were obtained. CLINICAL HISTORY: hep c positive COMPARISON: None FINDINGS: PANCREAS: Unremarkable. LIVER: Homogeneous. No focal hepatic lesion. No intrahepatic biliary ductal dilatation. GALLBLADDER: The gallbladder has been surgically resected. COMMON DUCT: 5 mm. Normal for age. RIGHT KIDNEY: The right kidney measures 10.4 cm. There is no hydronephrosis, mass, or stone. FREE FLUID: None. IMPRESSION: The gallbladder has been surgically resected. Otherwise unremarkable limited abdominal ultrasound. Reviewed, Interpreted and Dictated by Lucrecia Gutierrez MD Transcribed by Geraldine Allen Authenticated and [facility]
== END ==
PROVIDERS: PCP Family Medicine; Visit Provider Nurse Practitioner
DX: R76.8 Other specified abnormal immunological findings in serum (principal)
CPT/HCPCS: 76705

== ENCOUNTER 2023-12-30 18:01 | Emergency (ER) | payer OTHER, SELFPAY ==
[2023-12-30 19:00] VITALS: BP 123/72; PULSE 101; RESP 18; TEMP 36.8; O2SAT 98; BMI 23.7
--- NOTE | 2023-12-30 19:21 | EXP.UTC ---
Discharge Plan Disposition Patient Disposition: Home, Self-Care Condition: Good Prescriptions Prescriptions: New azithromycin [Zithromax] 250 mg tablet 250 mg PO UD DOSE PK Qty: 6 0RF Rx Instructions: Take two (2) tablets today, then one (1) tablet days #2 thru #5 methylprednisolone 4 mg Tablets,Dose Pack 4 mg PO DIRECTED 6 Days Qty: 21 0RF Rx Instructions: Take 1 pack as directed for 6 days [id number]-tfbhjzcur-HP [Bromfed DM] 2-30-10 mg/5 mL Syrup 5 ml PO Q6H PRN (Reason: Cough) Qty: 240 0RF Referrals Follow up/Referrals: Saqib Lewis MD [Primary Care Provider] - See instructions Activity Restrictions/Add. Instructions Additional Instructions/Restrictions: Drink plenty of fluids. Take tylenol or ibuprofen for pain or fever. Take the medications as directed. Follow up with your regular doctor. GO TO THE ER FOR ANY WORSENING SYMPTOMS Clinical Impressions Clinical Impression: Influenza B Stand Alone Forms Stand Alone Forms: Work/School Release Instructions Patient Instructions: Influenza, DI for Influenza -- Adult Discharge ED Provider: Gab Obrien [facility] General Stated complaint: cough, florinda, painful breathing Time Seen by Provider: 12/30/23 19:16 History of Present Illness Provider Complaint: She states that 3 days ago she began feeling bad and running a fever. Since then, she has developed sore throat, body aches, chest tightness, and productive cough with yellowish sputum. Related Data Previous Rx's Medication Instructions Recorded azithromycin 250 mg tablet 250 mg PO UD DOSE PK #6 tabs 12/30/23 (Zithromax) gofypelswbvjmik-iclmwvboondkgez-ZM 5 ml PO Q6H PRN Cough #240 mL 12/30/23 2 mg-30 mg-10 mg/5 mL oral syrup (Bromfed DM) methylprednisolone 4 mg tablets in 4 mg PO DIRECTED 6 days #21 tabs 12/30/23 a dose pack Allergies Allergy/AdvReac Type Severity Reaction Status Date / Time codeine Allergy Verified 12/30/23 19:32 Sulfa (Sulfonamide Allergy Verified 12/30/23 19:32 Antibiotics) tramadol Allergy Verified 12/30/23 19:32 [facility] Disclaimer: The information contained in this section may have been updated after the patient was seen, as this information can be updated by other users. Medical History History of endometriosis Surgical History History of appendectomy History of section History of cholecystectomy History of hysterectomy History of tonsillectomy History of tympanostomy tube placement Family History Other No significant family history Social History Smoking Status: Former smoker tobacco type: cigarettes packs per day: 1 alcohol intake: never substance use type: denies use current occupational status: other Travel in the last 8 weeks: None household members: spouse housing: house current occupation: na current occupational exposures/hazards: No caffeine: Yes ROS Obtained: Yes All systems reviewed & no additional complaints except as documented Constitutional Constitutional: Reports chills and Reports fever(s) Eyes Eyes: Denies eye discharge ENT Ears, Nose, Mouth, and Throat: Reports as per HPI Cardiovascular Cardiovascular: Denies chest pain Respiratory Respiratory: Denies chest congestion and Reports cough Gastrointestinal Gastrointestingal: Reports nausea; Denies abdominal pain, constipation, cramping, diarrhea or vomiting Musculoskeletal Musculoskeletal: Denies arthralgias Integumentary/Breasts Skin/Breast: Denies rash Neurologic Neurologic: Denies paresthesias Physical Exam General General appearance: alert and in no apparent distress Eye Eye exam: Present normal appearance, PERRL and EOMI ENT ENT exam: Present mucous membranes moist and normal external ear exam Expanded ENT Exam External ear exam: Present normal external inspection TM/Canal exam: Bilateral TM: erythema and bulging Nose exam: Absent sinus tenderness Nasal speculum exam: Bilateral: normal Mouth exam: Present normal external inspection; Absent drooling Teeth exam: Present normal inspection Throat exam: Present tonsillar erythema and tonsillomegaly Neck Neck exam: Present normal inspection, full ROM and trachea midline; Absent tenderness, lymphadenopathy or thyromegaly Chest Chest inspection: Present normal inspection and symmetric chest wall rise; Absent tenderness or rash Respiratory Respiratory exam: Present normal lung sounds bilaterally; Absent respiratory distress, wheezes, stridor or accessory muscle use Cardiovascular Cardiovascular exam: Present regular rate, normal rhythm and normal heart sounds Abdominal Exam Abdominal exam: Present soft; Absent distention, tenderness, guarding, rebound or rigidity Extremities Exam Extremities exam: Present normal inspection, full ROM and normal capillary refill; Absent tenderness or calf tenderness Back Exam Back exam: Present normal inspection and full ROM; Absent tenderness Neurological Exam Neurological exam: Present alert and oriented X3 Psychiatric Psychiatric exam: Present normal affect and normal mood Skin Skin exam: Present warm, dry, intact and normal color Lymphatic Lymphatic Findings: no adenopathy Medical Decision Making Medical Records Medical records reviewed: No I reviewed the patient's medical records. Tod Inquiry Pt receiving controlled substance: No Lab Data Lab results reviewed: Yes I reviewed the patient's lab results.
[2023-12-30 19:49] LABS: UTC Influenza A Antigen Negative (Negative); UTC Influenza B Antigen Positive (Negative); UTC Strep Screen (Rapid) Negative (Negative)
[2023-12-30 20:00] VITALS: BP 123/72; PULSE 101; RESP 18; TEMP 36.8; O2SAT 98
== END 2023-12-30 20:00 | disposition home or self-care (01) ==
PROVIDERS: Emergency Provider Nurse Practitioner Family; PCP Family Medicine
DX: J10.1 Influenza due to other identified influenza virus with other respiratory manifestations (principal); R05.8 Other specified cough; R50.9 Fever, unspecified; R07.0 Pain in throat; M79.18 Myalgia, other site
CPT/HCPCS: 87804; 87880; 99212; 99214; G0463

== ENCOUNTER 2024-06-29 09:17 | Outpatient (CLI) | payer OTHER, SELFPAY ==
[2024-06-30 08:23] LABS: FSH 7.7 mIU/mL (.); Progesterone 0.1 ng/mL (.)
== END 2024-06-29 23:59 | disposition home or self-care (01) ==
LOC: LAB 09:18
PROVIDERS: PCP Family Medicine; Visit Provider Obstetrics & Gynecology
DX: N95.1 Menopausal and female climacteric states (principal)
CPT/HCPCS: 36415; 82670; 83001; 84144

== ENCOUNTER 2024-11-11 18:16 | Emergency (ER) | payer SELFPAY ==
[2024-11-11 19:35] VITALS: BP 110/75; PULSE 61; RESP 18; TEMP 36.6; O2SAT 98; BMI 22.3
[2024-11-11 19:52] LABS: UTC Strep Screen (Rapid) Negative (Negative)
[2024-11-11 19:53] LABS: UTC Influenza A Antigen Negative (Negative); UTC Influenza B Antigen Negative (Negative)
--- NOTE | 2024-11-11 19:56 | EXP.UTC ---
Discharge Plan Disposition Patient Disposition: Home, Self-Care Condition: Good Prescriptions Prescriptions: New amoxicillin 500 mg capsule 500 mg PO BID 10 Days Qty: 20 0RF [id number] [Bromfed DM] 2-30-10 mg/5 mL syrup 5 - 10 ml PO Q6H PRN (Reason: cold symptoms) Qty: 150 0RF Referrals Follow up/Referrals: Saqib Lewis MD [Primary Care Provider] - See instructions Activity Restrictions/Add. Instructions Additional Instructions/Restrictions: *Monitor Temp, Over the counter Motrin or Tylenol as directed/as needed Tylenol every 4 hours and Motrin every 6 hours (as long as your family doctor has told you that you can take it) for fever or pain. and straight to ER if unable to lower temp less than 101.0 after medication given *Warm salt water gargles may help to soothe the throat *Throat Lozenges? *Warm fluids like tea with honey may help to soothe the throat? *Sleep elevated *Humidifier/Vaporizer *Bromfed may cause drowsiness. Know how it effects you (your child) before driving, caring for small child, or sending your child to school. Not other antihistamines/allergy medications while taking bromfed Your throat swab was sent for culture. Those results are typically sent to your primary care. Be sure to follow up in 2-3 days with your family doctor/primary care physician if no improvement so they can review those result and treat if necessary. If you don?t have a primary care doctor, I recommend you get one but in the mean time, you will have to return to a walk in clinic Follow up IMMEDIATELY for new or worsening symptoms or no Noticeable improvement over the next 48-72 hours. 911 for difficulty breathing or swallowing Clinical Impressions Clinical Impression: Pharyngitis Instructions Patient Instructions: Sore Throat, Cough Print Language Print Language: Haitian Discharge ED Provider: Ashely Luz [facility] [place] General Stated complaint: sore throat, cough Mode of Arrival: Ambulatory Source of Information: Patient Limitations: No Limitations Time Seen by Provider: 11/11/24 19:56 Description of Symptoms (Recalled from Triage Doc. by RN): PATIENT C/O SORE THROAT THAT STARTED TODAY HEENT Symptoms (Recalled from RN notes): Yes Resp Symptoms (Recalled from RN notes): No Skin Symptoms (Recalled from RN notes): No MS Symptoms (Recalled from RN notes): No Functional Status (Recalled from RN notes): WNL History of Present Illness Provider Complaint: Patient states that she started with sore throat yesterday that has continued to get worse today and hurts when she swallows and more red Related Data Previous Rx's ?Medication ?Instructions ?Recorded amoxicillin 500 mg capsule 500 mg PO BID 10 days #20 caps 11/11/24 [id number] 5 - 10 ml PO Q6H PRN cold symptoms 11/11/24 2 mg-30 mg-10 mg/5 mL oral syrup #150 mL (Bromfed DM) Allergies Allergy/AdvReac Type Severity Reaction Status Date / Time codeine Allergy Verified 06/29/24 08:32 Sulfa (Sulfonamide Allergy Verified 06/29/24 08:32 Antibiotics) tramadol Allergy Verified 06/29/24 08:32 Worker's Comp Is this a Worker's Comp case?: No [facility] Disclaimer: The information contained in this section may have been updated after the patient was seen, as this information can be updated by other users. 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 current occupational exposures/hazards: No caffeine: Yes Have you lived/traveled outside US in past 30 days?: No Contact w/someone who lives/traveled outside US past 30 days?: No Exposure to someone with infectious disease in past 14 days?: No Do you have a fever (greater than 100.4 F or 38 C)?: No Have you tested positive for COVID-19: No Exposed to someone with COVID-19 in past 14 days?: No Do you have a sore throat?: Yes Do you have a cough?: Yes Do you have any weakness?: No Do you have any diarrhea?: No Are you experiencing any unusual bleeding?: No Do you have any muscle aches/pain?: No Do you have any abdominal pain?: No Are you experiencing loss of taste or smell?: No ROS Obtained: Yes All systems reviewed & no additional complaints except as documented and Yes Systems reviewed as appropriate & no additional complaints except as documented Constitutional Constitutional: Reports system reviewed and no additional complaints, except as documented and Reports as per HPI ENT Ears, Nose, Mouth, and Throat: Reports system reviewed and no additional complaints, except as documented, Reports as per HPI and Reports sore throat Cardiovascular Cardiovascular: Reports system reviewed and no additional complaints, except as documented and Reports as per HPI Respiratory Respiratory: Reports system reviewed and no additional complaints, except as documented, Reports as per HPI and Reports cough Gastrointestinal Gastrointestingal: Reports system reviewed and no additional complaints, except as documented and as per HPI Physical Exam General General appearance: alert and in no apparent distress ENT ENT exam: Present mucous membranes moist Expanded ENT Exam Nose exam: Absent sinus tenderness Throat exam: Present other (Pharyngeal erythema noted) Respiratory Respiratory exam: Present normal lung sounds bilaterally; Absent respiratory distress or wheezes Cardiovascular Cardiovascular exam: Present regular rate, normal rhythm and normal heart sounds Neurological Exam Neurological exam: Present alert, oriented X3 and normal gait Medical Decision Making Medical Records Screening: Per USPSTF and CDC recommendations, given the prevalence of disease in our region, it is our hospital?s policy to screen for HIV and viral Hepatitis for all patients aged 18 and over and those with ongoing risk factors. Tod Inquiry Pt receiving controlled substance: No Tod was queried for this patient: No Vital Signs: 11/11/24 19:35 Temperature 97.9 F Temperature Source Oral Pulse Rate [Left Brachial] 61 Respiratory Rate 18 Blood Pressure [Left Arm] 110/75 Blood Pressure Mean [Left Arm] 86 Blood Pressure Source [Left Arm] Automatic Cuff Blood Pressure Position [Left Arm] Sitting 02 Sat by Pulse Oximetry 98 Oxygen Delivery Method Room Air Lab Data Lab results reviewed: Yes I reviewed the patient's lab results. Lab Results 11/11/24 19:37: Influenza Type A Ag Negative, Influenza Type B Ag Negative, Strep Scn Rapid Clinic Negative Orders (Tests/Meds): ORDERS Category Date Time Status Strep Screen Confirmation Stat Micro 11/11/24 19:37 Received
[2024-11-11 20:05] VITALS: BP 110/75; PULSE 61; RESP 18; TEMP 36.6; O2SAT 98
== END 2024-11-11 20:09 | disposition home or self-care (01) ==
PROVIDERS: Emergency Provider Nurse Practitioner; PCP Family Medicine
DX: J02.9 Acute pharyngitis, unspecified (principal)
CPT/HCPCS: 87804; 87880; 99213; G0381

== ENCOUNTER 2024-12-21 10:01 | Emergency (ER) | payer SELFPAY ==
[2024-12-21 10:30] VITALS: BP 132/69; PULSE 108; RESP 19; TEMP 37; O2SAT 98; BMI 24.0
--- NOTE | 2024-12-21 10:38 | EXP.UTC ---
Discharge Plan Disposition Patient Disposition: Home, Self-Care Condition: Good Prescriptions Prescriptions: New amoxicillin 500 mg capsule 500 mg PO BID 10 Days Qty: 20 0RF Referrals Follow up/Referrals: Saqib Lewis MD [Primary Care Provider] - See instructions Activity Restrictions/Add. Instructions Additional Instructions/Restrictions: *Monitor Temp, Over the counter Motrin or Tylenol as directed/as needed Tylenol every 4 hours and Motrin every 6 hours (as long as your family doctor has told you that you can take it) for fever or pain. and straight to ER if unable to lower temp less than 101.0 after medication given *Warm salt water gargles may help to soothe the throat *Throat Lozenges? *Warm fluids like tea with honey may help to soothe the throat? *Sleep elevated *Humidifier/Vaporizer Your throat swab was sent for culture. Those results are typically sent to your primary care. Be sure to follow up in 2-3 days with your family doctor/primary care physician if no improvement so they can review those result and treat if necessary. If you don?t have a primary care doctor, I recommend you get one but in the mean time, you will have to return to a walk in clinic Follow up IMMEDIATELY for new or worsening symptoms or no Noticeable improvement over the next 48-72 hours. 911 for difficulty breathing or swallowing Clinical Impressions Clinical Impression: Pharyngitis Instructions Patient Instructions: Sore Throat, Amoxicillin Print Language Print Language: Danish Discharge ED Provider: Ashely Luz [facility] HPI General Stated complaint: sore throat, red,swollen lymphnodes x 4 days Time Seen by Provider: 12/21/24 10:38 History of Present Illness Provider Complaint: Patient states that for the last 4-5 days she has been having sore throat and swollen lymph nodes States that she thought it would get better but has continued to get worse so today she came in to get it checked Related Data Previous Rx's ?Medication ?Instructions ?Recorded amoxicillin 500 mg capsule 500 mg PO BID 10 days #20 caps 12/21/24 Allergies Allergy/AdvReac Type Severity Reaction Status Date / Time codeine Allergy Verified 06/29/24 08:32 Sulfa (Sulfonamide Allergy Verified 06/29/24 08:32 Antibiotics) tramadol Allergy Verified 06/29/24 08:32 [facility] Disclaimer: The information contained in this section may have been updated after the patient was seen, as this information can be updated by other users. 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 current occupational exposures/hazards: No caffeine: Yes Have you lived/traveled outside US in past 30 days?: No Contact w/someone who lives/traveled outside US past 30 days?: No Exposure to someone with infectious disease in past 14 days?: No Do you have a fever (greater than 100.4 F or 38 C)?: No Have you tested positive for COVID-19: No Exposed to someone with COVID-19 in past 14 days?: No Do you have a sore throat?: Yes Do you have a cough?: No Do you have any weakness?: No Do you have any diarrhea?: No Are you experiencing any unusual bleeding?: No Do you have any muscle aches/pain?: No Do you have any abdominal pain?: No Are you experiencing loss of taste or smell?: No ROS Obtained: Yes All systems reviewed & no additional complaints except as documented and Yes Systems reviewed as appropriate & no additional complaints except as documented Constitutional Constitutional: Reports system reviewed and no additional complaints, except as documented and Reports as per HPI ENT Ears, Nose, Mouth, and Throat: Reports system reviewed and no additional complaints, except as documented, Reports as per HPI and Reports sore throat Cardiovascular Cardiovascular: Reports system reviewed and no additional complaints, except as documented and Reports as per HPI Respiratory Respiratory: Reports system reviewed and no additional complaints, except as documented and Reports as per HPI Gastrointestinal Gastrointestingal: Reports system reviewed and no additional complaints, except as documented and as per HPI Physical Exam General General appearance: alert and in no apparent distress ENT ENT exam: Present mucous membranes moist Expanded ENT Exam Nose exam: Absent sinus tenderness Throat exam: Present other (Pharyngeal erythema noted with PND) Respiratory Respiratory exam: Present normal lung sounds bilaterally; Absent respiratory distress or wheezes Cardiovascular Cardiovascular exam: Present regular rate, normal rhythm and normal heart sounds Abdominal Exam Abdominal exam: Present soft and normal bowel sounds; Absent distention or tenderness Neurological Exam Neurological exam: Present alert, oriented X3 and normal gait Medical Decision Making Medical Records Screening: Per USPSTF and CDC recommendations, given the prevalence of disease in our region, it is our hospital?s policy to screen for HIV and viral Hepatitis for all patients aged 18 and over and those with ongoing risk factors. Tod Inquiry Pt receiving controlled substance: No Tod was queried for this patient: No Lab Data Lab results reviewed: Yes I reviewed the patient's lab results.
[2024-12-21 10:48] LABS: UTC Strep Screen (Rapid) Negative (Negative)
[2024-12-21 10:57] VITALS: BP 132/69; PULSE 108; RESP 19; TEMP 37; O2SAT 98
== END 2024-12-21 11:00 | disposition home or self-care (01) ==
PROVIDERS: Emergency Provider Nurse Practitioner; PCP Family Medicine
DX: J02.9 Acute pharyngitis, unspecified (principal)
CPT/HCPCS: 87880; 99213; G0381

== ENCOUNTER 2024-12-26 16:22 | Emergency (ER) | payer SELFPAY ==
[2024-12-26 16:24] VITALS: BP 111/65; PULSE 86; RESP 18; TEMP 36.6; O2SAT 98; BMI 23.8
--- NOTE | 2024-12-26 17:47 | ED_ITS ---
<Statement entered by Jd Cobb MD - 12/26/24 23:53> I was consulted by the HAYDEE, and we discussed the complexity of the problems being addressed. I approved the treatment and management plan for this patient's care in the emergency department, thus performing a substantive portion of the medical decision making. Jd Cobb MD Discharge Plan Disposition Patient Disposition: Home, Self-Care Condition: Good Prescriptions Prescriptions: New amoxicillin-pot clavulanate 875-125 mg tablet 1 tab PO BID Qty: 20 0RF No Action amoxicillin 500 mg capsule 500 mg PO BID 10 Days Qty: 20 0RF Referrals Follow up/Referrals: Saqib Lewis MD [Primary Care Provider] - See instructions Cassidy Fletcher APRN [Nurse Practitioner] - See instructions Activity Restrictions/Add. Instructions Additional Instructions/Restrictions: I have called in a new prescription for you for Augmentin. Please take it till it is gone. Please call tomorrow to make your appointment with ear nose and throat. They need to evaluate you further. If you have any new ongoing or worsening signs or symptoms follow-up with your PCP or return to the ER as needed. Clinical Impressions Clinical Impression: Lymphadenitis Instructions Patient Instructions: Chronic Lymphadenitis, DI for Lymphangitis-Adult Print Language Print Language: Iranian Discharge ED Provider: Jd Cobb General Adult HPI General Chief complaint: Upper Respiratory Infection Stated complaint: Sore throat,swelling Time Seen by Provider: 12/26/24 16:39 Mode of Arrival: Ambulatory Source of Information: Patient Limitations: No Limitations Description of Symptoms (Recalled from ER Triage Doc. by RN): pt presents for eval of sore throat. Was seen at [facility] last week dx with pharyngitis, and was on amoxicillin. Finished abx. Pt states her throat continues to be sore, and the swelling is worse. History of Present Illness HPI narrative: Patient presents for evaluation of neck pain. Patient was seen approximately a week ago for upper respiratory symptoms/pharyngitis. She was placed on amoxicillin 500 mg twice daily by the [facility]. Patient reports that her pharyngitis has since resolved but is continued to have submandibular/anterior neck tenderness that is worsening. She has 2 nodes 1 on each side of her neck in the submental area that are very tender to palpation. She denies any dysphagia i nability to tolerate any oral intake intolerance of her secretions. Patient has had a full mouth extraction previously. Related Data Previous Rx's ?Medication ?Instructions ?Recorded amoxicillin 500 mg capsule 500 mg PO BID 10 days #20 caps 12/21/24 amoxicillin 875 mg-potassium 1 tab PO BID #20 tabs 12/26/24 clavulanate 125 mg tablet Allergies Allergy/AdvReac Type Severity Reaction Status Date / Time codeine Allergy Verified 06/29/24 08:32 Sulfa (Sulfonamide Allergy Verified 06/29/24 08:32 Antibiotics) tramadol Allergy Verified 06/29/24 08:32 PFSH [facility] Disclaimer: The information contained in this section may have been updated after the patient was seen, as this information can be updated by other users. Medical History History of endometriosis Surgical History History of tympanostomy tube placement History of tonsillectomy History of section History of hysterectomy History of cholecystectomy History of appendectomy Family History Other No significant family history Social History Smoking Status: Never smoker alcohol intake: never substance use type: denies use current occupational status: other Travel in the last 8 weeks: None household members: spouse housing: house current occupation: na current occupational exposures/hazards: No caffeine: Yes Have you lived/traveled outside US in past 30 days?: No Contact w/someone who lives/traveled outside US past 30 days?: No Exposure to someone with infectious disease in past 14 days?: No Do you have a fever (greater than 100.4 F or 38 C)?: No Have you tested positive for COVID-19: No Exposed to someone with COVID-19 in past 14 days?: No Do you have a sore throat?: Yes Do you have a cough?: No Do you have any weakness?: No Do you have any diarrhea?: No Are you experiencing any unusual bleeding?: No Do you have any muscle aches/pain?: No Do you have any abdominal pain?: No Are you experiencing loss of taste or smell?: No Other Medical History Have you received the Flu Vaccine for this season: Yes Have you received the Pneumonia Vaccine: No ROS Obtained: Yes Systems reviewed as appropriate & no additional complaints except as documented Physical Exam General General appearance: alert and in no apparent distress Respiratory Respiratory exam: Present normal lung sounds bilaterally Cardiovascular Cardiovascular exam: Present regular rate Neurological Exam Neurological exam: Present alert and oriented X3 Medical Decision Making Medical Records Medical records reviewed: Yes I reviewed the patient's medical records. Screening: Per USPSTF and CDC recommendations, given the prevalence of disease in our region, it is our hospital?s policy to screen for HIV and viral Hepatitis for all patients aged 18 and over and those with ongoing risk factors. Tod Inquiry Pt receiving controlled substance: No Vital Signs: 12/26/24 16:24 12/26/24 19:09 Temperature 98 F 98.0 F Temperature Source Oral Oral Pulse Rate 86 Pulse Rate [Right] 86 Respiratory Rate 18 16 Blood Pressure 126/82 Blood Pressure [Right Arm] 111/65 Blood Pressure Mean [Right Arm] 80 Blood Pressure Source Automatic Cuff Blood Pressure Source [Right Arm] Automatic Cuff Blood Pressure Position Sitting Blood Pressure Position [Right Arm] Sitting 02 Sat by Pulse Oximetry 98 Oxygen Delivery Method Room Air Nasal Cannula Lab Data Lab results reviewed: Yes I reviewed the patient's lab results. Lab Results 12/26/24 17:56: Monoscreen Negative Orders (Tests/Meds): ED MEDICATIONS Discontinued Medications Generic Name Dose Route Start Last Admin Trade Name Freq PRN Reason Stop Dose Admin Acetaminophen 1,000 mg 12/26/24 17:44 12/26/24 17:59 Acetaminophen 500mg Tab PO 12/26/24 17:45 1,000 mg ONCE ONE Administration Amoxicillin/Clavulanate Potassium 1 each 12/26/24 18:42 12/26/24 18:47 Amoxicillin/Clavulanate Potassium 875/125mg Tablet PO 12/26/24 18:43 1 each ONCE ONE Administration Ibuprofen 800 mg 12/26/24 17:44 12/26/24 17:59 Ibuprofen 400 Mg Tablet PO 12/26/24 17:45 800 mg ONCE ONE Administration ORDERS Category Date Time Status Monoscreen (Rapid) Stat Lab 12/26/24 17:56 Completed Medical Decision Narrative: In summary patient is a 34-year-old female who presents to the emergency department for evaluation of lymphadenitis. Patient is hemodynamically stable upon arrival, afebrile. Physical exam is remarkable for a dentulous oropharynx however the oropharynx is normal in appearance, mucosa is normal without exudat e, palpation of the sublingual space reveals no induration cellulitis swelling. Palpation of the neck reveals a palpable lymph node in the submental area sublingual area that is tender to palpation but not significantly enlarged. Patient has normal tongue protrusion has normal occlusion of her bite. Bilateral tympanic membranes are normal.. Differential diagnosis includes regional lymphadenitis versus mononucleosis etc. Initial workup will be conducted with [facility]. Initial interventions include Tylenol and ibuprofen. Initial workup reviewed by in [facility] is negative. Upon repeat evaluation patient had moderate improvement after Tylenol and ibuprofen. Given this patient will be discharged with a prescription for Augmentin with first dose given here referral to ENT for further evaluation and strict return precautions. Critical Care Critical Care Time Critical Care Time: No
[2024-12-26] MEDS: ACETAMINOPHEN 500MG TAB 1000 MG PO (17:59)
[2024-12-26] MEDS: IBUPROFEN 400 MG TABLET 800 MG PO (17:59)
[2024-12-26 18:24] LABS: Monoscreen (Rapid) Negative (Negative)
[2024-12-26] MEDS: AMOXICILLIN/CLAVULANATE POTASSIUM 875/125MG TABLET 1 EACH PO (18:47)
[2024-12-26 19:09] VITALS: BP 126/82; PULSE 86; RESP 16; TEMP 36.7; O2SAT 96
== END 2024-12-26 19:15 | disposition home or self-care (01) ==
PROVIDERS: Physician Assistant; Emergency Provider Emergency Medicine; PCP Family Medicine
DX: I88.9 Nonspecific lymphadenitis, unspecified (principal); J02.9 Acute pharyngitis, unspecified; M54.2 Cervicalgia
CPT/HCPCS: 86318; 99283

== ENCOUNTER 2025-08-23 12:20 | Emergency (ER) | payer SELFPAY ==
[2025-08-23 12:28] VITALS: BP 139/69; PULSE 105; RESP 18; TEMP 36.7; O2SAT 99; BMI 20.5
--- NOTE | 2025-08-23 12:37 | CT_ITS ---
FINAL REPORT TECHNIQUE: Thin section axial images were obtained from the thoracic inlet through the upper abdomen after intravenous contrast injection. Reconstruction images were obtained from the axial data. Exam was performed using dose reduction technique. CLINICAL HISTORY: breast mass COMPARISON: None. FINDINGS: There is an enlarged left axillary lymph node. On coronal reconstruction images, this lymph node measures 19 mm. This is best seen on axial image 31. There is no left axillary lymphadenopathy. There is a mildly prominent AP window lymph node measuring 14 mm. There is no pleural or pericardial effusion. There is evidence of prior granulomatous disease. A posterior right apical nodule on image 10 measures 4 mm. There is a 5 mm right lower lobe pulmonary nodule on image 49. There is no consolidation. Early emphysematous changes are noted at the lung apices. The breast tissue is dense bilaterally. No discrete breast masses identified. No acute osseous abnormality. IMPRESSION: 1. Left axillary and AP window lymphadenopathy. These are nonspecific. These could be reactive or neoplastic. 2. No breast mass identified. However, the breasts are dense bilaterally. Consider evaluation of the breast mass by ultrasound or mammography. 3. Several 5 mm or less right lung nodules. These are nonspecific. Recommend follow-up imaging after risk stratification per Fleischner criteria. Authenticated and ERN
--- NOTE | 2025-08-23 12:37 | CT_ITS ---
FINAL REPORT TECHNIQUE: Thin section axial images are obtained through the abdomen and pelvis after intravenous contrast. Reconstruction images were obtained from the axial data. Exam was performed using dose reduction techniques. CLINICAL HISTORY: lymph node enlarged FINDINGS: LIVER: Homogeneous. No focal lesion. GALLBLADDER/BILIARY SYSTEM: Gallbladder is absent. No biliary dilatation. SPLEEN: Unremarkable. PANCREAS: Unremarkable. ADRENALS: Unremarkable. KIDNEYS/URETERS/BLADDER: No hydronephrosis, renal mass, or renal stone. Unremarkable urinary bladder. GI TRACT: No small bowel obstruction or dilatation. Appendix not visualized. No secondary findings of appendicitis. There is nonspecific fluid-filled small bowel loops in the lower abdomen and pelvis. Wall thickening of the colon is favored to be related to incomplete distention. PELVIC ORGANS: Uterus is absent. LYMPH NODES/RETROPERITONEUM/MESENTERY: No lymphadenopathy. No abdominal aortic aneurysm. ABDOMINAL WALL: The abdominal wall is intact. FREE FLUID: Physiologic free fluid. BONES: No acute osseous abnormality. IMPRESSION: Fluid-filled small bowel loops without dilatation which is nonspecific but can be seen with enteritis. Colonic wall thickening, favor incomplete distention. No lymphadenopathy. Reviewed, Interpreted and Dictated by Lucrecia Gutierrez MD Transcribed by Linda Gonzalez Authenticated and [facility]
--- NOTE | 2025-08-23 12:37 | CT_ITS ---
FINAL REPORT TECHNIQUE: Thin section axial CT images with coronal and sagittal reformats were performed after the administration of IV contrast. This study was performed with techniques to keep radiation doses as low as reasonably achievable (ALARA). Individualized dose reduction techniques using automated exposure control or adjustment of mA and/or kV according to the patient''s size were employed. CLINICAL HISTORY: lymph nodes swelling and tenderness COMPARISON: None. FINDINGS: There is a nasopharynx, oropharynx, epiglottis, larynx are unremarkable. The salivary glands are unremarkable. The thyroid is homogeneous. There is no cervical lymphadenopathy. No fluid collection. No acute osseous abnormality. IMPRESSION: No acute abnormality within the neck. No lymphadenopathy. Authenticated and ERN
[2025-08-23 12:48] LABS: Hematocrit 39.0 % (37.0-47.0); Hemoglobin 13.4 g/dL (12.2-16.2); Immature Granulocytes % 0.1 %; Mean Corpuscular HGB Conc 34.4 g/dL (31.8-35.4); Mean Corpuscular Hemoglobin 31.4 pg (27.0-31.2); Mean Corpuscular Volume 91.3 fl (81-99); Nucleated Red Blood Cells % 0 %; Platelet Count 211 K/mm3 (142-424); Red Blood Count 4.27 M/mm3 (4.20-5.40); Red Cell Distribution Width-SD 39.7 fL; White Blood Count 6.7 K/mm3 (4.8-10.8)
[2025-08-23 12:49] LABS: Lactate Venous 1.7 mmol/L (0.4-2.0); VBG HCO3 26.0 mmol/L (23-30); VBG PH 7.33 mmol/L (7.31-7.41); VBG PO2 30.8 mmol/L (28-40)
[2025-08-23 12:51] LABS: VBG PCO2 50.3 mmol/L (35-51)
[2025-08-23 13:00] LABS: Alanine Aminotransferase 18 U/L (12-78); Albumin Level 4.6 g/dl (3.5-5.0); Albumin/Globulin Ratio 1.8 (1.1-1.8); Alkaline Phosphatase 46 U/L (38-126); Anion Gap 15.5 mEq/L (5-15); Aspartate Amino Transferase 25 U/L (14-36); Bilirubin,Total 1.0 mg/dl (0.2-1.3); Blood Urea Nitrogen 12 mg/dl (7-17); Calcium 9.4 mg/dl (8.4-10.2); Carbon Dioxide 26 mmol/L (22.0-30.0); Chloride 98 mmol/L (98-107); Creatinine Clearance Estimated 96 mL/min (50-200); Creatinine,Serum 0.70 mg/dl (0.52-1.04); Estimated Glomerular Filt Rate 95 ml/min (>60); GFR (African American) 115 ML/MIN (>60); Globulin 2.5 g/dL (1.3-3.2); Glucose 64 mg/dl (74-100); Lipase 71 U/L (23-300); Magnesium 1.9 mg/dl (1.6-2.3); Potassium 3.5 mmoL/L (3.5-5.1); Sodium 136 mmol/L (136-145); Total Protein,Serum 7.1 g/dl (6.3-8.2); Uric Acid 3.3 mg/dl (2.5-6.2)
--- NOTE | 2025-08-23 13:01 | ED_ITS ---
Discharge Plan Disposition Patient Disposition: Home, Self-Care Prescriptions Prescriptions: No Action amoxicillin-pot clavulanate 875-125 mg tablet 1 tab PO BID Qty: 20 0RF amoxicillin 500 mg capsule 500 mg PO BID 10 Days Qty: 20 0RF Referrals Follow up/Referrals: Saqib Lewis MD [Primary Care Provider, Medical] - See instructions Chris Hassan MD [Physician, Pulmonology] - See instructions Clinical Impressions Clinical Impression: Lymphadenopathy, Incidental pulmonary nodule, > 3mm and < 8mm Instructions Patient Instructions: DI for Lymphadenopathy, DI for Pulmonary Nodule Print Language Print Language: Japanese Discharge ED Provider: Jd Cobb General Adult HPI General Chief complaint: PAIN Stated complaint: pain under both arms and breasts Time Seen by Provider: 08/23/25 12:23 Mode of Arrival: Ambulatory Source of Information: Patient Description of Symptoms (Recalled from ER Triage Doc. by RN): Pt presents for swollen lymph nodes to her left arm pit and right breasts History of Present Illness HPI narrative: 35-year-old female presents to the ED today for complaint of swollen lymph nodes in her left axilla, right breast and bilateral submental nodes. She has had no fevers or recent illness. She says her right breast was firm this morning and was firm and painful the last few nights. She says she has had a 30 to 35 pound weight loss in the last year. States that the nodes in her left axilla have been hurting since January. She has had no nipple discharge recently. She has had it in the past but not recent. She has had chills. No night sweats. 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 She has no insurance and she works at a [employer]. Related Data Previous Rx's ?Medication ?Instructions ?Recorded amoxicillin 500 mg capsule 500 mg PO BID 10 days #20 c aps 12/21/24 amoxicillin 875 mg-potassium 1 tab PO BID #20 tabs 09/09 clavulanate 125 mg tablet Allergies Allergy/AdvReac Type Severity Reaction Status Date / Time codeine Allergy Verified 06/29/24 08:32 Sulfa (Sulfonamide Allergy Verified 06/29/24 08:32 Antibiotics) tramadol Allergy Verified 06/29/24 08:32 [facility] Disclaimer: The information contained in this section may have been updated after the patient was seen, as this information can be updated by other users. Medical History History of endometriosis Surgical History History of tympanostomy tube placement History of tonsillectomy History of section History of hysterectomy History of cholecystectomy History of appendectomy Family History Other No significant family history Social History Smoking Status: Current every day smoker tobacco type: cigarettes packs per day: 1 alcohol intake: never substance use type: denies use current occupational status: other Travel in the last 8 weeks?: None household members: spouse housing: house current occupation: na current occupational exposures/hazards: No caffeine: Yes Have you lived/traveled outside [place] in past 30 days?: No Contact w/someone who lives/traveled outside [place] past 30 days?: No Exposure to someone with infectious disease in past 14 days?: No Do you have a fever (greater than 100.4 F or 38 C)?: No Have you tested positive for COVID-19?: No Exposed to someone with COVID-19 in past 14 days?: No Do you have a sore throat?: No Do you have a cough?: No Do you have any weakness?: No Do you have any diarrhea?: No Are you experiencing any unusual bleeding?: No Do you have any muscle aches/pain?: No Do you have any abdominal pain?: No Are you experiencing loss of taste or smell?: No Other Medical History Have you received the Flu Vaccine for this season: Yes Have you received the Pneumonia Vaccine: No ROS Obtained: Yes Systems reviewed as appropriate & no additional complaints except as documented Constitutional Constitutional: Reports as per HPI Physical Exam General General appearance: alert and in no apparent distress Head Head exam: normocephalic Eye Eye exam: Present PERRL and EOMI ENT ENT exam: Present normal oropharynx and mucous membranes moist Neck Neck exam: Present full ROM and trachea midline Respiratory Respiratory exam: Present normal lung sounds bilaterally Cardiovascular Cardiovascular exam: Present normal rhythm, irregular rhythm, +S1 and +S2 Abdominal Exam Abdominal exam: Present soft and normal bowel sounds Extremities Exam Extremities exam: Present full ROM and normal capillary refill Back Exam Back exam: Present normal inspection Neurological Exam Neurological exam: Present alert and oriented X3 Skin Skin exam: Present warm, dry and other (Right breast nodule at her right nipple, nodule felt in her left axilla and submental nodes) Lymphatic Lymphatic Findings: L axilla node tender, L axilla node enlarged and other (Bilateral submental nodes enlarged) Medical Decision Making Medical Records Screening: Per USPSTF and CDC recommendations, given the prevalence of disease in our region, it is our hospital?s policy to screen for HIV and viral Hepatitis for all patients aged 18 and over and those with ongoing risk factors. Tod Inquiry Pt receiving controlled substance: No Tod was queried for this patient: No Vital Signs: 08/23/25 12:28 08/23/25 15:50 Temperature 98.0 F 98.2 F Temperature Source Oral Pulse Rate 95 H Pulse Rate [Right] 105 H Respiratory Rate 18 18 Blood Pressure 128/75 Blood Pressure [Right Arm] 139/69 Blood Pressure Mean [Right Arm] 92 Blood Pressure Source Automatic Cuff Blood Pressure Source [Right Arm] Automatic Cuff Blood Pressure Position Sitting Blood Pressure Position [Right Arm] Sitting 02 Sat by Pulse Oximetry 99 Oxygen Delivery Method Room Air Room Air Lab Data Lab Results 08/23/25 12:40: WBC 6.7, RBC 4.27, Hgb 13.4, Hct 39.0, MCV 91.3, MCH 31.4 H, MCHC 34.4, RDW 11.8, Plt Count 211, MPV 10.1, Neut % (Auto) 73.5, Lymph % (Auto) 18.5, [place] % (Auto) 6.3, Eos % (Auto) 0.6, Baso % (Auto) 1.0, Neut # (Auto) 4.9, Lymph # (Auto) 1.2, [place] # (Auto) 0.4, Eos # (Auto) 0.0, Baso # (Auto) 0.1, VBG pH 7.33, VBG pCO2 50.3, VBG pO2 30.8, VBG HCO3 26.0, VBG Total CO2 27.5 H, VBG O2 Saturation 61.1, VBG Base Excess 0.1, VBG Lactic Acid 1.7, Sodium 136, Potassium 3.5, Chloride 98, Carbon Dioxide 26, Anion Gap 15.5 H, BUN 12, Creatinine 0.70, Estimated Creat Clear 96, Estimated GFR 95, Est GFR ( Amer) 115, Glucose 64 L, Uric Acid 3.3, Calcium 9.4, Magnesium 1.9, Total Bilirubin 1.0, AST 25, ALT 18, Alkaline Phosphatase 46, Lactate Dehydrogenase 131 L, C-Reactive Protein < 0.3, Total Protein 7.1, Albumin 4.6, Globulin 2.5, Albumin/Globulin Ratio 1.8, Lipase 71 08/23/25 14:25: Urine Color Yellow, Urine Appearance Clear, Urine pH 7.0, Ur Specific [place] <= 1.005, Urine Protein Negative, Urine Glucose (UA) Negative, Urine Ketones Trace, Urine Blood Trace-i, Urine Nitrate Negative, Urine Bilirubin Negative, Urine Urobilinogen 0.2, Ur Leukocyte Esterase Negative, Urine RBC None, Urine WBC Occasional, Ur Squamous Epith Cells 3-5, Urine Bacteria Trace, Urine HCG, Qual Negative 08/23/25 12:40 08/23/25 12:40 Orders (Tests/Meds): ED MEDICATIONS Discontinued Medications Generic Name Dose Route Start Last Admin Trade Name Freq PRN Reason Stop Dose Admin Iopamidol 160 ml 08/23/25 12:59 08/23/25 13:04 Iopamidol-370 (76%);100ml Bottle IV 08/23/25 13:00 160 ml ONCE ONE Administration Sodium Chloride 10 ml 08/23/25 12:59 08/23/25 13:03 Sodium Chloride 0.9% 10ml Syr (Rad Only) IV 08/23/25 13:00 10 ml ONCE ONE Administration ORDERS Category Date Time Status CT abdomen pelvis w con Stat Cat Scan 08/23/25 12:[address] chest w con Stat Cat Scan 08/23/25 12:[address] soft tissue neck w con Stat Cat Scan 08/23/25 12:37 Completed CBC [Complete Blood Count Auto Diff] Stat Lab 08/23/25 12:40 Completed CRP [C-Reactive Protein] Stat Lab 08/23/25 12:40 Completed Comprehensive Metabolic Panel Stat Lab 08/23/25 12:40 Completed HIV Combo Stat Lab 08/23/25 12:40 Received Hepatitis C Ab Qual. W/ RFX Stat Lab 08/23/25 12:40 Received LDH [Lactate Dehydrogenase] Stat Lab 08/23/25 12:40 Completed Lipase Stat Lab 08/23/25 12:40 Completed Magnesium Stat Lab 08/23/25 12:40 Completed Uric Acid Stat Lab 08/23/25 12:40 Completed Urinalysis and Microscopic Stat Lab 08/23/25 14:25 Completed Urine , HCG Qual. Stat Lab 08/23/25 14:25 Completed VBG [Venous Blood Gas] Stat RT 08/23/25 12:40 Completed Medical Decision Narrative: patient is a 35-year-old female presenting to the emergency department for evaluation of enlarged nodes, breast nodule. Patient is hemodynamically stable and nontoxic-appearing upon arrival, afebrile. Differential diagnosis includes breast cancer, lymph adenopathy, viral illness, among other. Workup will be conducted with hematologic labs, specific imaging, provocative tests. Patient with normal white count at 6.[address] scan of her chest showed posterior right apical nodule and a right lower lobe pulmonary nodule. Also showed left axillary lymphadenopathy all are nonspecific could be reactive or neoplastic. I discussed these with patient that she needs to follow-up with Dr. Hassan. Her CT scan of her abdomen showed enteritis and CT neck soft tissue showed no lymphadenopathy in her neck. Patient and I discussed that she follows up with Dr. Hassan and her PCP for further analysis of the lymph nodes. She is also to have a mammogram. Patient had not had insurance so she came in here for the mammogram but we do not do that in the ED patient is safe for discharge home with follow-up care. Critical Care Critical Care Time Critical Care Time: No
[2025-08-23] MEDS: SODIUM CHLORIDE 0.9% 10ML SYR (RAD ONLY) 10 ML IV (13:03)
[2025-08-23] MEDS: IOPAMIDOL-370 (76%);100ML BOTTLE 160 ML IV (13:04)
[2025-08-23 13:25] LABS: C-Reactive Protein < 0.3 mg/L (0-4)
[2025-08-23 14:35] LABS: Microscopic, Urine URINE MICROSCOPIC (MICROSCOPIC)
[2025-08-23 14:38] LABS: Bilirubin,Urine Negative (Negative); Color,Urine YELLOW (Yellow); Glucose,Urine (UA) Negative (Negative); Ketones,Urine TRACE (Negative); Leukocyte Esterase,Urine Negative (Negative); PH,Urine 7.0 (5.0-8.5); Protein,Urine Negative (Negative); Specific Gravity, Urine <= 1.005 (1.005-1.030); Urobilinogen,Urine 0.2 EU/dl (0.2)
[2025-08-23 14:41] LABS: Urine Pregnancy, HCG Qual. Negative (Negative)
[2025-08-23 14:55] LABS: Bacteria,Urine Trace /lpf; WBC,Urine Occasional #/hpf (0-3)
--- NOTE | 2025-08-23 15:18 | PC.NURSE ---
Gave the patient a sandwich. Rocky Ludwig
[2025-08-23 15:50] VITALS: BP 128/75; PULSE 95; RESP 18; TEMP 36.8; O2SAT 99
[2025-08-23 22:36] LABS: Hepatitis C Ab Qual. W/ RFX REACTIVE (Negative)
== END 2025-08-23 15:50 | disposition home or self-care (01) ==
PROVIDERS: Nurse Practitioner; Emergency Provider Emergency Medicine; PCP Family Medicine
DX: R59.0 Localized enlarged lymph nodes (principal); N64.4 Mastodynia; R91.1 Solitary pulmonary nodule; F17.210 Nicotine dependence, cigarettes, uncomplicated
CPT/HCPCS: 70491; 71260; 74177; 80053; 81001; 81025; 82803; 83615; 83690; 83735; 84550; 85025; 86140; 86803; 87389; 87522; 99283; 99285; Q9967